=== PATIENT | male | born 1955 | race Caucasian/White ===

== ENCOUNTER → 2017-03-05 | Outpatient (CLI) | payer MEDICARE ==
[~2017-03-05] MED LIST: ACTOS45 MG PO; ASPIRIN CHILDRE81 M1 PO; BYSTOLIC10 MG PO; COUMADIN 5MG TAB5 MG PO; LISINOPRIL 20MG20 MG PO; LISINOPRIL/HCTZ1 TA1 PO; NIASPAN500 MG PO; PLAVIX75 MG PO; PREDNISONE 10MG10 MG PO; SIMVASTATIN20 MG PO
--- NOTE | 2017-03-06 05:46 | RADIOLOGY REPORT PS360 ---
EXAM: CT LUNG LOW DOSE WO CONTRAST COMPARISON: None HISTORY: 61 year old male with greater than 30 pack-year smoking history asymptomatic ORDERING PHYSICIAN: Karlos Carrera MD PATIENT AGE: 61 years TECHNIQUE: The exam was performed on a GE Light Speed [address] scanner using 2.94 mGy CTDI. A low dose helical CT CHEST was performed on a multi-detector scanner The LDCT was performed in a facility that meets the criteria for the screening program. Data regarding this exam was submitted to [employer] which is an approved registry. The order for this exam indicates that it came as a result of a lung cancer screening counseling shard decision-making visit that included all the elements required of such a visit including smoking cessation. The radiologist interpreting this exam meets the [facility] criteria for the LDCT lung cancer screening program. The exam is reported using the Lung-RADS classification scale and reported to the ACR registry. NOTE: This study was performed for the specific purposes of lung cancer screening and is not an alternative to diagnostic chest CT. RADIATION DOSE: CTDI vol(CT dose Index-volume) = 2.94mG DLP (Dose Length Product) = 105.60 mGcm FINDINGS: 6 mm noncalcified nodule right upper lobe centrally, 4 mm noncalcified nodule left lower lobe lung the major fissure, 6 mm noncalcified nodule left lower lobe posteriorly.. Calcified granuloma right lower lobe. Other findings: Diffuse bronchial thickening consistent with obstructive chronic bronchitis There is mild prominence of the interstitium with dependent changes in the lungs posteriorly. Scattered small lymph nodes are present in the mediastinum measuring up to 2.3 x 1.6 cm and precarinal region. Diffuse coronary artery calcification noted. 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 IMPRESSION: 1. Lung RADS Category: 3, probably benign 2. Other findings: COPD with prominent interstitium Mild mediastinal adenopathy RECOMMENDATIONS: [address] follow-up
== END ==
LOC: RAD 07:48
DX: Z87.891 Personal history of nicotine dependence (principal); Z12.2 Encounter for screening for malignant neoplasm of respiratory organs
CPT/HCPCS: G0297